=== PATIENT | male | born 1960 | race Caucasian/White ===

== ENCOUNTER → 2023-10-25 | Emergency (ER) | payer OTHER ==
[~2023-10-25] MED LIST: CEFTRIAXONE 1000 MG/VIAL ONE; MORPHINE 4 MG/ML SYR ONE; NA CHLORIDE 0.9% 1,000 ML ONE; NA CHLORIDE 0.9% 50 ML ONE; ONDANSETRON 4 MG/2 ML VIAL ONE
[2023-10-25 23:27] LABS: Absolute Lymphocytes (CBC) 0.8 K/uL (0.7-4.9); Hematocrit 38.6 % (39.6-49.0); Lymphocytes % 6.3 % (15.3-44.8); MCV 108.9 fL (80-100); MPV 8.9 fL (7.6-11.3); Platelets 199 thou/uL (152-406); RBC Red Blood Cell Count 3.54 M/uL (4.33-5.43)
[2023-10-25 23:30] LABS: Albumin 4.7 g/dL (3.4-5.0); Bilirubin Total 0.6 mg/dL (0.2-1.0); Protein, Total 8.9 g/dL (6.4-8.2)
[2023-10-26 01:14] LABS: Blood Morphology Comment NOTED (NOT SEEN); Burr Cells 1+; Macrocytosis 1+; Platelet Estimate ADEQ
[2023-10-26 01:27] LABS: Specific Gravity 1.024 (1.005-1.030); Urine Bacteria None Seen /HPF (<20); Urine Bilirubin NEGATIVE (Negative); Urine Blood Trace (Negative); Urine Clarity Clear (Clear); Urine Color Light-Yellow (Yellow); Urine Glucose NEGATIVE (Negative); Urine Mucus 1+ /HPF (None Seen); Urine Protein NEGATIVE (Negative); Urine RBC <5 /HPF (None Seen); Urine Urobilinogen Normal (Normal); Urine pH 5.5 (5.0-7.0)
--- NOTE | 2023-10-26 01:30 | EDPHYS ---
Physician Documentation [facility] Name: Nathan Bower Jr Age: 63 yrs Sex: Male : 1960 Arrival Date: 10/25/2023 Time: 22:00 Bed 4 Private MD: ED Physician Walter Paulino HPI: 10/25 22:41 This 63 yrs old Male presents to ER via Ambulatory with complaints of Abdominal Pain. sb4 22:41 The patient presents with abdominal pain right lower quadrant. Onset: The sb4 symptoms/episode began/occurred 3 day(s) ago. The symptoms radiate to the right flank, pelvis. Associated signs and symptoms: Pertinent positives: nausea, vomiting, and diarrhea. The patient has not experienced similar symptoms in the past. The patient has not recently seen a physician. Historical: - Allergies: 22:25 No Known Allergies; tl4 - Home Meds: 22:25 None [Active]; tl4 - PMHx: 22:25 None; tl4 - Immunization history:: Adult Immunizations unknown. - Social history:: Smoking status: Patient denies any tobacco usage or history of. ROS: 22:41 Constitutional: Negative for fever, chills, and weight loss, sb4 22:41 Abdomen/GI: Positive for abdominal pain, nausea, vomiting, and diarrhea, 22:41 All other systems are negative, Exam: 22:41 Head/Face: Normocephalic, atraumatic. Eyes: Extra-ocular motions intact. Periorbital sb4 areas with no swelling, redness, or edema. ENT: Mucous membranes moist. Cardiovascular: Regular rate and rhythm with a normal S1 and S2. Respiratory: Lungs have equal breath sounds bilaterally, clear to auscultation and percussion. No rales, rhonchi or wheezes noted. No increased work of breathing, no retractions or nasal flaring. Skin: Warm, dry with normal turgor. Normal color with no rashes, no lesions, and no evidence of cellulitis. MS/ Extremity: Pulses equal, no cyanosis. Neurovascular intact. Full, normal range of motion. Neuro: Awake and alert, GCS 15, oriented to person, place, time, and situation. Motor strength 5/5 in all extremities. Sensory grossly intact. 22:41 Constitutional: The patient appears alert, awake, in obvious pain, uncomfortable, 22:41 Abdomen/GI: Inspection: abdomen appears normal, Bowel sounds: normal, Palpation: moderate abdominal tenderness, in the right lower quadrant, 22:41 Back: CVA tenderness, that is moderate, is noted on the right, Vital Signs: 22:22 BP 164 / 98; Pulse 55; Resp 16; Temp 98.8; Pulse Ox 100% on R/A; Weight 82.55 kg; tl4 Height 6 ft. 1 in. ; Pain 8/10; 23:00 BP 136 / 99; Pulse 59; Resp 16 S; Pulse Ox 97% on R/A; jw7 10/26 00:00 BP 143 / 75; Pulse 63; Resp 16; Pulse Ox 97% ; km8 00:30 BP 124 / 88; Pulse 53; Resp 16; Pulse Ox 96% on R/A; km8 01:00 BP 129 / 80; Pulse 47; Resp 16; Pulse Ox 95% on R/A; km8 01:56 BP 126 / 82; Pulse 52; Resp 17 S; Pulse Ox 98% on R/A; jw7 10/25 22:22 Body Mass Index 24.01 (82.55 kg, 185.42 cm) tl4 10/25 22:22 Pain Scale: Adult tl4 MDM: 10/25 22:18 Patient medically screened. sb4 22:41 Differential diagnosis: appendicitis, diverticulitis, non-specific abd pain, Peptic sb4 Ulcer Disease, Pyelonephritis, Ureterolithiasis, urinary tract infection, colitis. 23:57 Independent interpretation of the following test(s) in the Emergency Department CT sb4 Scan: My interpretation is my interpretation of the abdomen pelvis CT images are horseshoe kidney present as well as small non obstructing stone in left kidney. 10/26 00:48 Data reviewed: vital signs, nurses notes, lab test result(s), radiologic studies, I sb4 have discussed the patient's presentation/case with the attending Emergency Department Physician; and as a result, I will discharge patient. Historians other than the Patient: Spouse/Significant Other: significant other. Counseling: I had a detailed discussion with the patient and/or guardian regarding the historical points, exam findings, and any diagnostic results supporting the discharge/admit diagnosis, the presence of at least one elevated blood pressure reading (>120/80) during this emergency department visit, lab results, radiology results, the need for outpatient follow up, a urologist, to return to the emergency department if symptoms worsen or persist or if there are any questions or concerns that arise at home. Medication response: morphine markedly relieved the patient's pain. Symptoms have improved. Special discussion: I discussed with the patient the need to follow-up with the PCP/specialist for the noted incidental finding on X-ray/CT scanning. 10/25 22:39 Order name: CBC with Diff; Complete Time: 01:15 sb4 10/25 22:39 Order name: CMP; Complete Time: 23:37 sb4 10/25 22:39 Order name: Lipase; Complete Time: 23:37 sb4 10/25 22:39 Order name: Urinalysis w/ reflexes; Complete Time: 01:29 sb4 10/25 23:31 Order name: Manual Differential; Complete Time: 01:15 EDMS 10/25 22:39 Order name: CT Abd/Pelvis - IV Contrast Only sb4 10/25 22:39 Order name: IV Saline Lock; Complete Time: 22:48 sb4 10/25 22:39 Order name: Labs collected and sent; Complete Time: 22:48 sb4 Administered Medications: 10/25 23:00 Drug: NS 0.9% IV 1000 ml IV at 1 bolus Per protocol; 1000 mL bolus Route: IV; Rate: 1 jw7 bolus; Site: right antecubital; 10/26 00:50 Follow up: IV Status: Completed infusion; IV Intake: 1000ml [facility] 10/25 23:00 Drug: Ondansetron IVP 4 mg IVP once; over 2 minutes Route: IVP; Site: right antecubital;jw7 10/26 00:50 Follow up: Response: No adverse reaction 10/25 23:00 Drug: morphine IVP or IV 4 mg IVP once over 4 mins Route: IVP; Infused Over: 4 mins; jw7 Site: right antecubital; 10/26 00:50 Follow up: Response: No adverse reaction 00:50 Drug: NS 0.9% IV 1000 ml IV at 1 bolus Per protocol; 1000 mL bolus Route: IV; Rate: 1 km8 bolus; Site: right antecubital; 01:51 Follow up: IV Status: Completed infusion; IV Intake: 1000ml 01:57 Follow up: Response: No adverse reaction; IV Status: Completed infusion; IV Intake: jw7 1000ml 01:30 Drug: Rocephin IV 1 grams IV at calculated rate once; Given slow IV push per pharmacy jw7 instructions Route: IV; Rate: calculated rate; Site: right antecubital; 01:51 Follow up: Response: No adverse reaction; IV Status: Completed infusion km8 01:57 Follow up: Response: No adverse reaction; IV Status: Completed infusion; IV Intake: [id number] Disposition: 01:00 Co-signature as Attending Physician, Walter Paulino MD I agree with the assessment sp4 and plan of care. I reviewed the patient's care provided by the Advanced Practice Provider and agree with the diagnosis and treatment plan. Disposition Summary: 10/26/23 01:29 Discharge Ordered Notes: Location: Home sb4 Problem: new sb4 Symptoms: have improved sb4 Condition: Stable sb4 Diagnosis - Calculus of kidney with calculus of ureter sb4 Followup: sb4 - With: Dion Mann MD - When: As needed - Reason: Recheck today's complaints, Re-evaluation by your physician Discharge Instructions: - Discharge Summary Sheet sb4 - Kidney Stones sb4 Forms: - Work release form jb4 - Thank You Letter sb4 - Patient Portal Instructions sb4 - Leadership Thank You Letter sb4 Signatures: Dispatcher [employer] Lacey Deras, RN RN jw7 Leora Cuadra PABertha PABertha sb4 Walter Paulino MD MD sp4 Sarah Garcia RN RN km8 Nicolas Reyes RN RN tl4
--- NOTE | 2023-10-26 01:30 | ER ---
Nurse's Notes [facility] Name: Nathan Bower Jr Age: 63 yrs Sex: Male : 1960 Arrival Date: 10/25/2023 Time: 22:00 Bed 4 Private MD: Diagnosis: Calculus of kidney with calculus of ureter Presentation: 10/25 22:22 Chief complaint: Patient states: Pt c/o RLQ pain, nausea, vomiting and diarrhea that tl4 got worse today at 1400. Pt states RLQ pain radiates into right flank. Pt states he feels like he can't urinate. Coronavirus screen: At this time, the client does not indicate any symptoms associated with coronavirus-19. Ebola Screen: No symptoms or risks identified at this time. Initial Sepsis Screen: Does the patient meet any 2 criteria? No. Patient's initial sepsis screen is negative. Does the patient have a suspected source of infection? No. Patient's initial sepsis screen is negative. Risk Assessment: Do you want to hurt yourself or someone else? Patient reports no desire to harm self or others. Onset of symptoms was October 25, 2023 at 14:00. 22:22 Method Of Arrival: Ambulatory tl4 22:22 Acuity: BRANDON 3 tl4 Triage Assessment: 22:26 General: Appears distressed, uncomfortable, Behavior is cooperative, appropriate for tl4 age. Pain: Complains of pain in back and abdomen. EENT: No deficits noted. No signs and/or symptoms were reported regarding the EENT system. Neuro: No deficits noted. Cardiovascular: No deficits noted. Respiratory: No deficits noted. GI: Reports lower abdominal pain, diarrhea, nausea, vomiting. : No deficits noted. No signs and/or symptoms were reported regarding the genitourinary system. Derm: No deficits noted. No signs and/or symptoms reported regarding the dermatologic system. Historical: - Allergies: 22:25 No Known Allergies; tl4 - Home Meds: 22:25 None [Active]; tl4 - PMHx: 22:25 None; tl4 - Immunization history:: Adult Immunizations unknown. - Social history:: Smoking status: Patient denies any tobacco usage or history of. Screenin:30 [facility] ED Fall Risk Assessment (Adult) History of falling in the last 3 months, jw7 including since admission No falls in past 3 months (0 pts) Score/Fall Risk Level 0 - 2 = Low Risk Oriented to surroundings, Maintained a safe environment, Educated pt \T\ family on fall prevention, incl call for assistance when getting out of bed. Abuse screen: Denies threats or abuse. Denies injuries from another. Nutritional screening: No deficits noted. Tuberculosis screening: No symptoms or risk factors identified. Assessment: 22:30 General: See Triage Assessment. [facility] 22:30 GI: Bowel sounds present X 4 quads. Abd is soft X 4 quads Abdomen is tender to [facility] palpation in right lower quadrant and left lower quadrant. 10/26 00:27 Reassessment: Patient appears in no apparent distress at this time. No changes from [facility] previously documented assessment. Patient and/or family updated on plan of care and expected duration. Pain level reassessed. Patient is alert, oriented x 3, equal unlabored respirations, skin warm/dry/pink. 01:30 Reassessment: Patient appears in no apparent distress at this time. No changes from [facility] previously documented assessment. Patient and/or family updated on plan of care and expected duration. Pain level reassessed. Patient is alert, oriented x 3, equal unlabored respirations, skin warm/dry/pink. 01:56 Reassessment: Patient appears in no apparent distress at this time. Patient and/or 7 family updated on plan of care and expected duration. Pain level reassessed. Patient is alert, oriented x 3, equal unlabored respirations, skin warm/dry/pink. Patient states feeling better. Patient states symptoms have improved. Vital Signs: 10/25 22:22 BP 164 / 98; Pulse 55; Resp 16; Temp 98.8; Pulse Ox 100% on R/A; Weight 82.55 kg; tl4 Height 6 ft. 1 in. ; Pain 8/10; 23:00 BP 136 / 99; Pulse 59; Resp 16 S; Pulse Ox 97% on R/A; jw7 10/26 00:00 BP 143 / 75; Pulse 63; Resp 16; Pulse Ox 97% ; km8 00:30 BP 124 / 88; Pulse 53; Resp 16; Pulse Ox 96% on R/A; km8 01:00 BP 129 / 80; Pulse 47; Resp 16; Pulse Ox 95% on R/A; km8 01:56 BP 126 / 82; Pulse 52; Resp 17 S; Pulse Ox 98% on R/A; jw7 10/25 22:22 Body Mass Index 24.01 (82.55 kg, 185.42 cm) tl4 10/25 22:22 Pain Scale: Adult tl4 ED Course: 10/25 22:03 Patient arrived in ED. jj6 22:05 Leora Cuadra [facility]-C [facility]. sb4 22:05 Walter Paulino MD is Attending Physician. sb4 22:25 Triage completed. tl4 22:25 Arm band placed on left wrist. tl4 22:30 Patient has correct armband on for positive identification. Bed in low position. Call [facility] light in reach. 22:48 Initial lab(s) drawn, by me, sent to lab. Inserted saline lock: 20 gauge in right [facility] antecubital area, using aseptic technique. Blood collected. 23:52 CT Abd/Pelvis - IV Contrast Only In Process Unspecified. EDMS 10/26 01:29 Dion Mann MD is Referral Physician. sb4 01:51 Provided Education on: d/c teaching. km8 01:51 No provider procedures requiring assistance completed. km8 01:57 IV discontinued, intact, bleeding controlled, No redness/swelling at site. Pressure jw7 dressing applied. Administered Medications: 10/25 23:00 Drug: NS 0.9% IV 1000 ml IV at 1 bolus Per protocol; 1000 mL bolus Route: IV; Rate: 1 jw7 bolus; Site: right antecubital; 10/26 00:50 Follow up: IV Status: Completed infusion; IV Intake: 1000ml [facility] 10/25 23:00 Drug: Ondansetron IVP 4 mg IVP once; over 2 minutes Route: IVP; Site: right antecubital;jw7 10/26 00:50 Follow up: Response: No adverse reaction [facility] 10/25 23:00 Drug: morphine IVP or IV 4 mg IVP once over 4 mins Route: IVP; Infused Over: 4 mins; jw7 Site: right antecubital; 10/26 00:50 Follow up: Response: No adverse reaction 00:50 Drug: NS 0.9% IV 1000 ml IV at 1 bolus Per protocol; 1000 mL bolus Route: IV; Rate: 1 km8 bolus; Site: right antecubital; 01:51 Follow up: IV Status: Completed infusion; IV Intake: 1000ml km8 01:57 Follow up: Response: No adverse reaction; IV Status: Completed infusion; IV Intake: jw7 1000ml 01:30 Drug: Rocephin IV 1 grams IV at calculated rate once; Given slow IV push per pharmacy jw7 instructions Route: IV; Rate: calculated rate; Site: right antecubital; 01:51 Follow up: Response: No adverse reaction; IV Status: Completed infusion km8 01:57 Follow up: Response: No adverse reaction; IV Status: Completed infusion; IV Intake: [id number] Medication: 01:51 VIS not applicable for this client. km8 Intake: 00:50 IV: 1000ml; Total: 1000ml. km8 01:51 IV: 1000ml; Total: 2000ml. km8 01:57 IV: 1000ml; Total: 3000ml. jw7 01:57 IV: 50ml; Total: 3050ml. jw7 Outcome: 01:29 Discharge ordered by . sb4 01:57 Discharged to home ambulatory, jw7 01:57 Condition: stable 01:57 Discharge instructions given to patient, Instructed on discharge instructions, follow up and referral plans. Demonstrated understanding of instructions, follow-up care, 01:58 Patient left the ED. jw7 Signatures: Dispatcher [employer] EDMS Марина [id number] Lacey Munoz RN RN jw7 Leora Cuadra PA-C PA-C sb4 Marx, Katie, RN RN km8 Nicolas Reyes RN RN tl4 Corrections: (The following items were deleted from the chart) 10/25 23:19 22:30 GI: Bowel sounds present X 4 quads. Abd is soft X 4 quads Abdomen is tender to jw7 palpation in right upper quadrant and left upper quadrant jw7
[2023-10-26 02:11] VITALS: BP 126/82; TEMP 98.8; O2SAT 98
--- NOTE | 2023-10-26 12:50 | RAD REPORT ---
EXAM DESCRIPTION: CT - Abdomen Pelvis W Contrast - 10/26/2023 6:34 am CLINICAL HISTORY: The patient is 63 years old and is Male; Abd pain;Flank pain TECHNIQUE: Axial computed tomography images of the abdomen and pelvis with intravenous contrast. S agittal and coronal reformatted images were created and reviewed. This CT exam was performed using one or more of the following dose reduction techniques: automated exposure control, adjustment of t he mA and/or kV according to patient size, and/or use of iterative reconstruction technique. DLP: 849 mGy*cm COMPARISON: None. FINDINGS: LUNG BASES: Bibasilar atelectasis. No focal consolidation. ABDOMEN: LIVER: Hepatic steatosis. GALLBLADDER AND BILE DUCTS: Unremarkable. No calcified stones. No ductal dilation. PANCREAS: Unremarkable. No mass. No ductal dilation. SPLEEN: Unremarkable. No splenomegaly. ADRENALS: Unremarkable. No mass. KIDNEYS AND URETERS: Horseshoe kidney with right hydronephrosis, hydroureter as well as urothelial thickening and enhancement and there are ureteral stranding. Additional nonobstructive punctate right renal stone. Left renal cyst measuring 2.1 cm. STOMACH AND BOWEL: Distal colonic diverticulosis. No obstruction. No mucosal thickening. PELVIS: APPENDIX: The appendix is seen and is within normal limits. BLADDER: Retained punctate stone in the urinary bladder. REPRODUCTIVE: Unremarkable as visualized. ABDOMEN and PELVIS: INTRAPERITONEAL SPACE: Unremarkable. No free air. No significant fluid collection. BONES/JOINTS: No acute fracture. No dislocation. SOFT TISSUES: Unremarkable. VASCULATURE: Mild vascular calcifications. No abdominal aortic aneurysm. LYMPH NODES: Unremarkable. No enlarged lymph nodes. IMPRESSION: 1. Horseshoe kidney with right hydronephrosis, hydroureter as well as urothelial thick ening and enhancement and there are ureteral stranding. Findings most suggestive of recently passed right renal stone with retained punctate stone in the urinary bladder. Correlate with urinalysis. 2. Distal colonic diverticulosis. No acute diverticulitis. 3. Hepatic steatosis. 4. Left renal cyst measuring 2.1 cm. No follow-up imaging is recommended. JACR 2017; [id number], Management of the Incidental Renal Mass on CT, [employer] 2020; [id number], B osniak Classification of Cystic Renal Masses, Version 2019. Electronically signed by: Francisco Shoemaker DO 10/26/2023 12:19 AM CLAIMS ANALYST Due to temporary technical issues with the PACS/Fluency reporting system, reports are being signed by the in house radiologist without review as a courtesy to ensure prompt reporting. The interpreting r adiologist is fully responsible for the content of the report.
== END ==
LOC: ER 22:00
DX: N20.2 Calculus of kidney with calculus of ureter (principal)
CPT/HCPCS: 85025; 81001; 36415; 83690; 80053; 74177; Q9967; J2405; J7030